=== PATIENT | female | born 1980 | race Caucasian/White ===

== ENCOUNTER 2017-12-18 03:48 | Emergency (ER) | payer OTHER ==
[~2017-12-18] VITALS: Ht 177.8 cm; Wt 59.9 kg
[~2017-12-18 03:48] MED LIST: ALBU90OI INH; AZIT250 PO; AZIT500; CEPH500 PO; CLIN150 PO; CYCL10 PO; Cleocin HCl300 MG PO; DEXTROMETHORPHAN; DIPH50 PO; GUAIFENESIN; HYDACE5 PO; IBUP400 PO; IBUP600 PO; IBUP800 PO; MULVITMINE PO; NAPR500 PO; NAPR550 PO; Norco 5-325 Ta1 EACH PO; OXYACE5T PO; PENVK500 PO; PRED10 PO; PRED20 PO; Percocet 5-3251 EACH PO; RXCLIN PO; RXNAPNA550 PO; RXOXYACE PO; SULTRIDS PO; TRIA80TC TOP; Ultram50 MG PO; Zithromax250 MG PO
== END 2017-12-18 05:37 | disposition left against medical advice (07) ==
LOC: ER 03:48
DX: M62.838 Other muscle spasm (principal); F17.200 Nicotine dependence, unspecified, uncomplicated
CPT/HCPCS: 99282

== ENCOUNTER 2017-12-21 11:00 | Emergency (ER) | payer OTHER ==
[~2017-12-21] VITALS: Ht 177.8 cm; Wt 61.2 kg
[2017-12-21] MEDS ORDERED: NAPR500 PO (12:32)
== END 2017-12-21 12:39 | disposition home or self-care (01) ==
LOC: ER 11:00
DX: M54.41 Lumbago with sciatica, right side (principal); F17.200 Nicotine dependence, unspecified, uncomplicated
CPT/HCPCS: 96372; 99282; J1885

== ENCOUNTER 2020-12-06 02:46 | Emergency (ER) | payer OTHER ==
[~2020-12-06] VITALS: Ht 177.8 cm; Wt 63.5 kg
[2020-12-06] MEDS ORDERED: IBUP400 (04:07)
[2020-12-06] MEDS ORDERED: ACET500 (04:07)
== END 2020-12-06 06:52 | disposition home or self-care (01) ==
LOC: ER 02:46
DX: R51.9 Headache, unspecified (principal); F17.200 Nicotine dependence, unspecified, uncomplicated
CPT/HCPCS: 99283; A9270; J1200; J1885

== ENCOUNTER 2020-12-08 10:22 | Emergency (ER) | payer OTHER ==
[~2020-12-08] VITALS: Ht 177.8 cm; Wt 61.2 kg
[~2020-12-08 10:22] MED LIST changes: +ACET500; +IBUP400
[2020-12-08] MEDS ORDERED: Amoxicillin500 MG PO (11:02)
[2020-12-09] MEDS ORDERED: Cleocin HCl300 MG PO (18:54)
== END 2020-12-08 11:04 | disposition home or self-care (01) ==
LOC: ER 10:22
DX: K04.7 Periapical abscess without sinus (principal); F17.200 Nicotine dependence, unspecified, uncomplicated
CPT/HCPCS: 99282

== ENCOUNTER 2020-12-09 16:27 | Emergency (ER) | payer OTHER ==
[~2020-12-09] VITALS: Ht 177.8 cm; Wt 61.2 kg
[~2020-12-09 16:27] MED LIST changes: +Amoxicillin500 MG PO
[2020-12-09] MEDS ORDERED: Cleocin HCl300 MG PO (18:54)
== END 2020-12-09 19:31 | disposition home or self-care (01) ==
LOC: ER 16:27
DX: K04.7 Periapical abscess without sinus (principal); F17.200 Nicotine dependence, unspecified, uncomplicated
CPT/HCPCS: 36415; 96365; 99283-25; A9270; J1885

== ENCOUNTER 2021-08-29 07:33 | Emergency (ER) | payer OTHER ==
[~2021-08-29] VITALS: Ht 177.8 cm; Wt 61.2 kg
== END 2021-08-29 08:03 | disposition left against medical advice (07) ==
LOC: ER 07:33
DX: Z53.21 Procedure and treatment not carried out due to patient leaving prior to being seen by health care provider (principal)

== ENCOUNTER 2022-01-19 10:08 | Emergency (ER) | payer OTHER ==
[~2022-01-19] VITALS: Ht 177.8 cm; Wt 61.2 kg
[2022-01-19] MEDS ORDERED: CYCL10 PO (12:20)
[2022-01-19] MEDS ORDERED: IBU800 M1 PO (12:20)
== END 2022-01-19 12:30 | disposition home or self-care (01) ==
LOC: ER 10:08
DX: M75.101 Unspecified rotator cuff tear or rupture of right shoulder, not specified as traumatic (principal); F17.200 Nicotine dependence, unspecified, uncomplicated; Z79.899 Other long term (current) drug therapy
CPT/HCPCS: 73030; 96372; 99283-25; J1885

== ENCOUNTER 2022-07-25 08:11 | Emergency (ER) | payer OTHER ==
[~2022-07-25] VITALS: Ht 177.8 cm; Wt 59.0 kg
[~2022-07-25 08:11] MED LIST changes: +IBU800 M1 PO
== END 2022-07-25 09:15 | disposition home or self-care (01) ==
LOC: ER 08:11
DX: M25.551 Pain in right hip (principal); F17.210 Nicotine dependence, cigarettes, uncomplicated
CPT/HCPCS: 73502; 96372; 99283-25; J1885